=== PATIENT | male | born 1985 | race Caucasian/White ===

== ENCOUNTER 2019-12-03 10:37 | Inpatient (IN) ==
[2019-12-03] MEDS ORDERED: Melatonin 3 MG TABLET PO PRN (15:38)
[2019-12-03] MEDS ORDERED: Acetaminophen 325 MG TABLET PO PRN (15:38)
[2019-12-03] MEDS ORDERED: Ipratropium/Albuterol Neb 3 ML IH PRN (15:38)
[2019-12-03] MEDS ORDERED: CeFAZolin Syringe 2,000MG/20 ML SYR IVPB SCH (15:45)
[2019-12-03] MEDS ORDERED: *HR* Dextrose 50 % in Water (Syg) 50 ML SYRINGE IVP PRN (15:55)
[2019-12-03] MEDS ORDERED: D5% in Water 1,000 ML IVC PRN (15:55)
[2019-12-03] MEDS ORDERED: Dextrose Gel 15 GM/37.5 ML TUBE PO PRN ×2 (15:55)
[2019-12-03] MEDS: Insulin LISPRO 300 UNITS/3 ML VIAL SQ SCH ×2 (17:14→20:58)
[2019-12-03] MEDS: ceFAZolin 2,000 MG in 0.9 % Sodium Chloride 100 ML IVPB SCH (18:07)
[2019-12-03] MEDS: Insulin DETEMIR 100 UNIT/ML X5UNITS SQ SCH (20:54)
[2019-12-04] MEDS: ceFAZolin 2,000 MG in 0.9 % Sodium Chloride 100 ML IVPB SCH ×4 (00:05→23:51)
[2019-12-04 05:42] LABS: Basophils % 0.5 %; Eosinophils # 0.3 K/mcL (0.0-0.6); Eosinophils % 4.4 %; Hematocrit 34.4 % (37.5-50.1); Hemoglobin 11.6 g/dL (12.9-16.9); Immature Granulocytes % 1.7 % (0-4); Lymphocytes # 1.8 K/mcL (0.6-4.6); Lymphocytes % 28.1 %; Mean Corpuscular HGB Conc 33.7 g/dL (31.6-35.5); Mean Corpuscular Hemoglobin 29.1 pg (28.0-33.3); Mean Corpuscular Volume 86.4 fL (83.0-100.0); Monocytes # 0.7 K/mcL (0.0-1.3); Monocytes % 10.3 %; Neutrophils # 3.5 K/mcL (1.6-8.9); Platelet Count 256 K/mcL (140-400); Red Blood Count 3.98 M/mcL (4.19-5.50); Red Cell Distribution Width 13.2 % (11.5-14.5); White Blood Count 6.3 K/mcL (4.3-11.1)
[2019-12-04 05:44] LABS: INR 1.1; Prothrombin Time 12.1 Seconds (9.4-12.1)
[2019-12-04] MEDS: Aspirin Enteric Coated 81 MG Tablet PO SCH (08:19)
[2019-12-04] MEDS: Multivit/Ca/Min/Fe/FA 1 TAB TABLET PO SCH (08:20)
[2019-12-04] MEDS: Insulin LISPRO 300 UNITS/3 ML VIAL SQ SCH ×4 (08:20→20:31)
[2019-12-04] MEDS: *HR* Glimepiride 2 MG TABLET PO SCH (08:20)
[2019-12-04] MEDS: Insulin DETEMIR 100 UNIT/ML X5UNITS SQ SCH ×2 (08:24→20:31)
[2019-12-04] MEDS ORDERED: NON-FORMULARY MEDICATION 1 EACH EACH (Omega-3/Dha/Epa/Fish Oil [Fish Oil 1,000 Mg Softgel] PO SCH (09:00)
[2019-12-04 09:26] LABS: Estimated Average Glucose 214 mg/dl
[2019-12-05] MEDS: Insulin LISPRO 300 UNITS/3 ML VIAL SQ SCH ×4 (08:22→21:21)
[2019-12-05] MEDS: ceFAZolin 2,000 MG in 0.9 % Sodium Chloride 100 ML IVPB SCH ×2 (08:22→16:43)
[2019-12-05] MEDS: Multivit/Ca/Min/Fe/FA 1 TAB TABLET PO SCH (08:23)
[2019-12-05] MEDS: *HR* Glimepiride 2 MG TABLET PO SCH (08:23)
[2019-12-05] MEDS: Aspirin Enteric Coated 81 MG Tablet PO SCH (08:25)
[2019-12-05] MEDS: Insulin DETEMIR 100 UNIT/ML X5UNITS SQ SCH ×2 (08:39→21:21)
[2019-12-05 13:17] LABS: Hematocrit 35.2 % (37.5-50.1); Hemoglobin 12.1 g/dL (12.9-16.9); Mean Corpuscular HGB Conc 34.4 g/dL (31.6-35.5); Mean Corpuscular Hemoglobin 29.9 pg (28.0-33.3); Mean Corpuscular Volume 86.9 fL (83.0-100.0); Mean Platelet Volume 9.2 fL (9.4-12.4); Platelet Count 293 K/mcL (140-400); Red Blood Count 4.05 M/mcL (4.19-5.50); Red Cell Distribution Width 13.4 % (11.5-14.5); White Blood Count 7.3 K/mcL (4.3-11.1)
[2019-12-05 13:30] LABS: BUN/Creatinine Ratio 24 (6-26); Blood Urea Nitrogen 14 mg/dL (6-20); Carbon Dioxide 27 mEq/L (23-29); Chloride 99 mEq/L (98-107); Glucose 321 mg/dL (70-105); Magnesium 1.7 mg/dL (1.6-2.6); Osmolality,Calculated 291 (280-300); Potassium 4.1 mEq/L (3.5-5.1); Sodium 134 mEq/L (136-145); eGFR For African Americans > 60 (> 60); eGFR For Non-African Americans > 60 (> 60)
[2019-12-05] MEDS: Magnesium Oxide 400 MG TABLET PO SCH (21:20)
[2019-12-06] MEDS: ceFAZolin 2,000 MG in 0.9 % Sodium Chloride 100 ML IVPB SCH ×2 (00:33→10:57)
[2019-12-06 05:23] LABS: Hematocrit 36.4 % (37.5-50.1); Hemoglobin 12.2 g/dL (12.9-16.9); Mean Corpuscular HGB Conc 33.5 g/dL (31.6-35.5); Mean Corpuscular Hemoglobin 29.3 pg (28.0-33.3); Mean Corpuscular Volume 87.5 fL (83.0-100.0); Mean Platelet Volume 8.9 fL (9.4-12.4); Platelet Count 274 K/mcL (140-400); Red Blood Count 4.16 M/mcL (4.19-5.50); Red Cell Distribution Width 13.4 % (11.5-14.5); White Blood Count 8.8 K/mcL (4.3-11.1)
[2019-12-06 05:43] LABS: Alanine Aminotransferase 15 Units/L (7-52); Albumin 3.6 g/dL (3.5-5.7); Alkaline Phosphatase 74 Units/L (34-104); Aspartate Amino Transferase 14 Units/L (13-39); BUN/Creatinine Ratio 25 (6-26); Bilirubin,Total 0.3 mg/dL (0.3-1.0); Blood Urea Nitrogen 13 mg/dL (6-20); Calcium 9.5 mg/dL (8.6-10.3); Carbon Dioxide 30 mEq/L (23-29); Chloride 101 mEq/L (98-107); Globulin 3.5 g/dL (2.4-3.5); Glucose 178 mg/dL (70-105); Magnesium 1.8 mg/dL (1.6-2.6); Osmolality,Calculated 291 (280-300); Sodium 138 mEq/L (136-145); Total Protein 7.1 g/dL (6.4-8.9); eGFR For African Americans > 60 (> 60); eGFR For Non-African Americans > 60 (> 60)
[2019-12-06] MEDS: Multivit/Ca/Min/Fe/FA 1 TAB TABLET PO SCH (08:23)
[2019-12-06] MEDS: *HR* Glimepiride 2 MG TABLET PO SCH (08:23)
[2019-12-06] MEDS: Aspirin Enteric Coated 81 MG Tablet PO SCH (08:23)
[2019-12-06] MEDS: Insulin LISPRO 300 UNITS/3 ML VIAL SQ SCH ×4 (08:23→22:35)
[2019-12-06] MEDS: Magnesium Oxide 400 MG TABLET PO SCH ×2 (08:23→22:18)
[2019-12-06] MEDS: Insulin DETEMIR 100 UNIT/ML X5UNITS SQ SCH ×2 (08:24→22:35)
[2019-12-07] MEDS: Multivit/Ca/Min/Fe/FA 1 TAB TABLET PO SCH (08:06)
[2019-12-07] MEDS: *HR* Glimepiride 2 MG TABLET PO SCH (08:06)
[2019-12-07] MEDS: Insulin DETEMIR 100 UNIT/ML X5UNITS SQ SCH ×2 (08:06→19:56)
[2019-12-07] MEDS: Magnesium Oxide 400 MG TABLET PO SCH ×2 (08:06→19:54)
[2019-12-07] MEDS: Aspirin Enteric Coated 81 MG Tablet PO SCH (08:06)
[2019-12-07] MEDS: Insulin LISPRO 300 UNITS/3 ML VIAL SQ SCH ×4 (08:06→19:56)
[2019-12-08 04:57] LABS: Hematocrit 38.2 % (37.5-50.1); Hemoglobin 12.8 g/dL (12.9-16.9); Mean Corpuscular HGB Conc 33.5 g/dL (31.6-35.5); Mean Corpuscular Hemoglobin 29.2 pg (28.0-33.3); Mean Corpuscular Volume 87.2 fL (83.0-100.0); Mean Platelet Volume 8.9 fL (9.4-12.4); Platelet Count 303 K/mcL (140-400); Red Blood Count 4.38 M/mcL (4.19-5.50); Red Cell Distribution Width 13.3 % (11.5-14.5); White Blood Count 8.2 K/mcL (4.3-11.1)
[2019-12-08 05:14] LABS: BUN/Creatinine Ratio 34 (6-26); Blood Urea Nitrogen 19 mg/dL (6-20); Calcium 9.6 mg/dL (8.6-10.3); Carbon Dioxide 27 mEq/L (23-29); Chloride 101 mEq/L (98-107); Glucose 174 mg/dL (70-105); Magnesium 1.9 mg/dL (1.6-2.6); Osmolality,Calculated 290 (280-300); Sodium 137 mEq/L (136-145); eGFR For African Americans > 60 (> 60); eGFR For Non-African Americans > 60 (> 60)
[2019-12-08] MEDS: Magnesium Oxide 400 MG TABLET PO SCH ×2 (08:10→20:20)
[2019-12-08] MEDS: Insulin LISPRO 300 UNITS/3 ML VIAL SQ SCH ×4 (08:10→20:21)
[2019-12-08] MEDS: Multivit/Ca/Min/Fe/FA 1 TAB TABLET PO SCH (08:11)
[2019-12-08] MEDS: *HR* Glimepiride 2 MG TABLET PO SCH (08:11)
[2019-12-08] MEDS: Aspirin Enteric Coated 81 MG Tablet PO SCH (08:11)
[2019-12-08] MEDS: Insulin DETEMIR 100 UNIT/ML X5UNITS SQ SCH ×2 (08:11→20:20)
[2019-12-09] MEDS: *HR* Glimepiride 2 MG TABLET PO SCH (08:13)
[2019-12-09] MEDS: Aspirin Enteric Coated 81 MG Tablet PO SCH (08:13)
[2019-12-09] MEDS: Magnesium Oxide 400 MG TABLET PO SCH ×2 (08:13→21:06)
[2019-12-09] MEDS: Multivit/Ca/Min/Fe/FA 1 TAB TABLET PO SCH (08:13)
[2019-12-09] MEDS: Insulin DETEMIR 100 UNIT/ML X5UNITS SQ SCH ×2 (08:14→21:06)
[2019-12-09] MEDS: Insulin LISPRO 300 UNITS/3 ML VIAL SQ SCH ×4 (08:14→21:08)
[2019-12-09] MEDS: DilTIAZem CD (24hr) 240 MG CAP.ER.24H PO SCH (12:09)
[2019-12-10] MEDS: DilTIAZem CD (24hr) 240 MG CAP.ER.24H PO SCH (08:14)
[2019-12-10] MEDS: Aspirin Enteric Coated 81 MG Tablet PO SCH (08:14)
[2019-12-10] MEDS: *HR* Glimepiride 2 MG TABLET PO SCH (08:14)
[2019-12-10] MEDS: Multivit/Ca/Min/Fe/FA 1 TAB TABLET PO SCH (08:14)
[2019-12-10] MEDS: Magnesium Oxide 400 MG TABLET PO SCH ×2 (08:14→20:33)
[2019-12-10] MEDS: Insulin LISPRO 300 UNITS/3 ML VIAL SQ SCH ×4 (08:15→20:35)
[2019-12-10] MEDS: Insulin DETEMIR 100 UNIT/ML X5UNITS SQ SCH ×2 (08:17→20:33)
[2019-12-11 00:40] LABS: ABG Base Excess 1 mEq/L (-2 to 3); ABG HCO3 24 mEq/L (21-27); ABG Oxygen Saturation 86 % (95-98); ABG PCO2 33 mmHg (35-45); ABG PH 7.47 pH Units (7.32-7.45); ABG PO2 48 mmHg (85-104); ABG TCO2 25 mEq/L (20-26)
[2019-12-11 01:28] LABS: Basophils % 0.4 %; Eosinophils # 0.1 K/mcL (0.0-0.6); Eosinophils % 1.2 %; Hematocrit 38.7 % (37.5-50.1); Hemoglobin 13.2 g/dL (12.9-16.9); Immature Granulocytes % 0.9 % (0-4); Lymphocytes % 19.3 %; Mean Corpuscular HGB Conc 34.1 g/dL (31.6-35.5); Mean Corpuscular Hemoglobin 29.7 pg (28.0-33.3); Mean Corpuscular Volume 87.2 fL (83.0-100.0); Mean Platelet Volume 8.9 fL (9.4-12.4); Monocytes # 0.7 K/mcL (0.0-1.3); Monocytes % 7.2 %; Neutrophils # 7.3 K/mcL (1.6-8.9); Platelet Count 311 K/mcL (140-400); Red Blood Count 4.44 M/mcL (4.19-5.50); Red Cell Distribution Width 13.3 % (11.5-14.5); White Blood Count 10.3 K/mcL (4.3-11.1)
[2019-12-11 01:34] LABS: INR 1.1
[2019-12-11 01:44] LABS: BUN/Creatinine Ratio 40 (6-26); Blood Urea Nitrogen 23 mg/dL (6-20); Calcium 9.6 mg/dL (8.6-10.3); Carbon Dioxide 29 mEq/L (23-29); Chloride 100 mEq/L (98-107); Glucose 131 mg/dL (70-105); Magnesium 1.9 mg/dL (1.6-2.6); Osmolality,Calculated 289 (280-300); Phosphorous 5.3 mg/dL (2.7-4.5); Potassium 3.6 mEq/L (3.5-5.1); Sodium 137 mEq/L (136-145); eGFR For African Americans > 60 (> 60); eGFR For Non-African Americans > 60 (> 60)
[2019-12-11] MEDS ORDERED: Isovue-370 500 ML BOTTLE IVP ONE (02:43)
[2019-12-11] MEDS ORDERED: *HR* Heparin 5,000 UNIT/ML VIAL IVP PRN ×2 (03:48)
[2019-12-11] MEDS ORDERED: *HR* Heparin 5,000 UNIT/ML VIAL IVP ONE (03:48)
[2019-12-11] MEDS ORDERED: Heparin 25,000 UNIT/250 ML D5W 25,000 UNIT/250 ML IV.SOLN IVC SCH (04:00)
[2019-12-11 04:11] LABS: Heparin anti-factor XA UFH 0.07 IU/mL (0.30-0.70)
[2019-12-11 04:12] LABS: Prothrombin Time 11.7 Seconds (9.4-12.1)
[2019-12-11 05:03] VITALS: BP 132/83
== END 2019-12-11 06:10 | disposition short-term general hospital (02) | DRG 177 ==
LOC: INPGRE 14:18
PROVIDERS: ADMIT Family Medicine; ATTEND Family Medicine